=== PATIENT | female | born 1950 | race Caucasian/White ===

== ENCOUNTER 2018-02-12 15:08 | Emergency (ER) | payer OTHER ==
[2018-02-12 15:13] VITALS: BP 142/88
[2018-02-12] MEDS ORDERED: PROPARACAINE 0.5% 15 ML OPHT DROP ONE (15:16)
[2018-02-12] MEDS ORDERED: PROPARACAINE 0.5% 15 ML OPHT DROP OP ONE (15:20)
--- NOTE | 2018-02-12 15:20 | EDPHY ---
H & P Stated Complaint: left eye injury when waking up from a nap, no trauma Time Seen by Provider: 02/12/18 15:14 HPI/ROS: HPI: This is a 67-year-old female who presents with Chief Complaint: left eye injury during yd work Location: Left eye Quality: Pain Duration: 1 hr prior to arrival Signs and Symptoms: no fever, no nausea, no vomiting, no photophobia, no noise sensitivity, no neck stiffness, no ear pain, no tinnitus, no nasal congestion, no sinus pressure, no weakness, no radiation, no aura, no visual loss, no visual floaters Timing: Acute Severity: Moderate Context: Patient was performing work in her yd this morning and believes that she got dirt in dust in her left eye several hours ago. She immediately tried to flush out with water and actually put her eyes into a bucket. She reports that she was able to remove several small black specks from her left eye. Approximately 2 hr ago, she laid down for a nap and when she woke up she felt extreme left eye moderate pain and a foreign body sensation. She reports that she has good vision and no headache. Denies blurry vision or floaters. Ambulatory without any deficits. Reports tetanus is current. Modifying Factors: None Comment: ROS: A comprehensive 10 system review of systems is otherwise negative aside from elements mentioned in the history of present illness. MEDICAL/SURGICAL/SOCIAL HISTORY: Medical history: Generally healthy. Does not take any regular medications. Surgical history: Denies Social history: Family history noncontributory. General appearance: Extremely polite and cooperative, nontoxic-appearing elderly white female, awake and alert. Visual Acuity: noted from Nurse's notes. Pupils: equal round and reactive to light. EOMI Lids: no edema or swelling Skin: no proptosis, no periorbital erythema or swelling, no vesicles Conjunctivae: not injected, no discharge Cornea: exam with fluorescein shows uptake at the 3 o'clock and 6:00 position Anterior chamber: normal, no hyphema or hypopyon Abelino-Pen: Normal pressures Source: Patient Exam Limitations: No limitations - Medical/Surgical History Hx Asthma: No Hx Chronic Respiratory Disease: No Hx Diabetes: No Hx Cardiac Disease: No Hx Renal Disease: No Hx Cirrhosis: No Hx Alcoholism: No Hx HIV/AIDS: No Hx Splenectomy or Spleen Trauma: No Other PMH: none reported - Social History Smoking Status: Never smoked Constitutional: Initial Vital Signs Temperature (C) 36.6 C 02/12/18 15:11 Heart Rate 80 02/12/18 15:11 Respiratory Rate 18 02/12/18 15:11 Blood Pressure 142/88 H 02/12/18 15:11 O2 Sat (%) 100 02/12/18 15:11 O2 Delivery Mode Room Air Allergies/Adverse Reactions: No Known Allergies Allergy (Unverified 02/12/18 15:10) Home Medications: Medication Instructions Recorded NK [No Known Home Meds] 02/12/18 Medical Decision Making ED Course/Re-evaluation: Vital signs reviewed and stable upon arrival. Positive fluorescein uptake consistent with corneal abrasion Differential Diagnosis: Differential diagnosis includes but is not limited to iritis, corneal abrasion, uveitis Departure - Departure Disposition: Home, Routine, Self-Care Clinical Impression: Abrasion of left cornea Qualifiers: Encounter type: initial encounter Qualified Code(s): S05.02XA - Injury of conjunctiva and corneal abrasion without foreign body, left eye, initial encounter Condition: Good Instructions: Corneal Abrasion (ED) Additional Instructions: Use Proparacaine eyedrops in your left eye; 1-2 drops every 6 hr as needed for pain. Do not use more than 24 hr. Take ibuprofen 600 mg every 8 hours as needed for pain. Use antibiotic eyedrops every 6 hours while awake x 5 days. Follow up with Ophthalmology in 3-5 days. Follow-Up: Please follow-up as noted above. Follow up sooner if your condition worsens or if you develop any new problems Call as soon as possible for an appointment. Be clear when you call for an appointment that this is an Emergency Department follow-up. Contact the Emergency Department if you are having trouble arranging follow up care. Our referrals are not based on your insurance network. When time allows, contact your insurance carrier to verify the referral physician is in your plan. If not, get a referral for an [employer] certified internetwork expert. Please ask us if you have any questions. Referrals: CONCHITA ELLIS [Primary Care Provider] - As per Instructions Fran Barnes MD [Medical Doctor] - As per Instructions
[2018-02-12] MEDS ORDERED: FLUORESCEIN SODIUM 1 MG STRIP OP ONE (15:22)
[2018-02-12] MEDS ORDERED: TOBRAMYCIN 0.3% SOLN PREPACK OPHT.BTL TAKEHOME ONE (15:39)
== END 2018-02-12 15:53 | disposition home or self-care (01) ==
DX: S05.02XA Injury of conjunctiva and corneal abrasion without foreign body, left eye, initial encounter (principal); Y92.007 Garden or yard of unspecified non-institutional (private) residence as the place of occurrence of the external cause; Y93.H2 Activity, gardening and landscaping